=== PATIENT | male | born 1980 | race Caucasian/White ===

== ENCOUNTER 2018-06-07 01:52 | Emergency (ER) | payer OTHER ==
[~2018-06-07] VITALS: Ht 180.3 cm; Wt 77.1 kg
[2018-06-07 01:53] VITALS: BP 124/92
[2018-06-07] MEDS ORDERED: CLONAZEPAM 0.50.5 M1 PO (02:02)
[2018-06-07] MEDS ORDERED: NORCO 5-325 TA1 EACH PO (02:11)
[2018-06-07] MEDS ORDERED: KEFLEX500 M1 PO (02:11)
[2018-06-07] MEDS ORDERED: BACTRIM DS TAB1 EACH PO (02:11)
[2018-06-07] MEDS ORDERED: HYDROCODON-ACE1 EAC7 PO (02:11)
[2018-06-07] MEDS ORDERED: TRUVADA1 EAC1 (02:19)
== END 2018-06-07 02:56 | disposition home or self-care (01) ==
LOC: ER 01:52
DX: L02.31 Cutaneous abscess of buttock (principal); F41.9 Anxiety disorder, unspecified; F17.210 Nicotine dependence, cigarettes, uncomplicated; Z88.5 Allergy status to narcotic agent